=== PATIENT | male | born 1960 | race Caucasian/White ===

== ENCOUNTER 2018-05-05 13:17 | Emergency (ER) | payer MEDICARE ==
[2018-05-05 13:38] VITALS: BP 150/91
[2018-05-05] MEDS ORDERED: traMADol 50 MG Tab PO ONE (14:15)
--- NOTE | 2018-05-05 14:19 | EDM.PDOC ---
ED HPI GENERAL MEDICAL PROBLEM - General Chief Complaint: Headache Stated Complaint: PAIN IN HEAD Time Seen by Provider: 05/05/18 14:05 Source of Information: Reports: Patient, Old Records, RN History Limitations: Reports: No Limitations - History of Present Illness INITIAL COMMENTS - FREE TEXT/NARRATIVE: 7 yo male patient of Dr[address] Virgen presents for intermittent pain in his head that is worse the past few days. He has AIDS and is worried about a fungal infection. No fever. No trouble walking or talking. His neck is a little stiff. Took ibuprofen yesterday without relief. Has not tried to get into Dr. Virgen's office. No nausea or vomiting. Onset: Other (comes and goes for months, getting worse.) Duration: Week(s):, Waxing/Waning Location: Reports: Head Quality: Reports: Stabbing Severity: Mild (now almost gone) Improves with: Reports: None Worsens with: Reports: Other (unknown) Context: Reports: Other (see HPI) Associated Symptoms: Reports: Headaches. Denies: Fever/Chills, Nausea/Vomiting Treatments CHILD CARE [employer] LEADER: Reports: Other (see below) (none today) Headache Pain Score (Numeric/FACES): 10 - Related Data Allergies Allergy/AdvReac Type Severity Reaction Status Date / Time No Known Allergies Allergy Verified 05/05/18 13:41 Home Meds: Home Meds Dolutegravir Sodium [Tivicay] 50 mg PO DAILY 05/05/18 [History] Emtricitabine/Tenofovir [Truvada 200 MG-300 MG] 1 tab PO DAILY 05/05/18 [History ] OLANZapine [Olanzapine] 10 mg PO DAILY 05/05/18 [History] Past Medical History HEENT History: Reports: Impaired Vision Musculoskeletal History: Reports: Back Pain, Chronic Psychiatric History: Reports: Bipolar Endocrine/Metabolic History: Reports: Diabetes, Type II, Obesity/BMI 30+ Hematologic History: Reports: Blood Transfusion(s) Immunologic History: Reports: HIV Oncologic (Cancer) History: Reports: Lymphoma - Infectious Disease History Infectious Disease History: Reports: Hepatitis B - Past Surgical History Head Surgeries/Procedures: Reports: None HEENT Surgical History: Reports: None Endocrine Surgical History: Reports: None Musculoskeletal Surgical History: Reports: None Oncologic Surgical History: Reports: None Other Oncologic Surgeries/Procedures: [id number] Dermatological Surgical History: Reports: None Social & Family History - Tobacco Use Smoking Status *Q: Never Smoker Second Hand Smoke Exposure: No - Caffeine Use Caffeine Use: Reports: Coffee - Recreational Drug Use Recreational Drug Use: No ED ROS GENERAL - Review of Systems Review Of Systems: See Below Constitutional: Reports: No Symptoms HEENT: Reports: No Symptoms Respiratory: Reports: No Symptoms Cardiovascular: Reports: No Symptoms Endocrine: Reports: No Symptoms GI/Abdominal: Reports: No Symptoms : Reports: No Symptoms Musculoskeletal: Reports: Neck Pain ( mild stiffness) Skin: Reports: No Symptoms Neurological: Reports: Headache. Denies: Confusion, Dizziness, Numbness, Tingling, Trouble Speaking, Difficulty Walking, Change in Speech Psychiatric: Reports: No Symptoms - Physical Exam Exam: See Below Exam Limited By: No Limitations General Appearance: Alert, WD/WN, No Apparent Distress Eye Exam: Bilateral Eye: EOMI, Normal Inspection, PERRL Ears: Normal External Exam, Normal Canal, Hearing Grossly Normal, Normal TMs Nose: Normal Inspection, Normal Mucosa, No Blood Throat/Mouth: Normal Inspection, Normal Lips, Normal Oropharynx, Normal Voice, No Airway Compromise Head Exam: Atraumatic, Normocephalic Neck: Normal Inspection, Full Range of Motion Respiratory/Chest: No Respiratory Distress, Lungs Clear, Normal Breath Sounds, No Accessory Muscle Use Cardiovascular: Regular Rate, Rhythm, No Edema Neuro Exam (Abbreviated): Alert, Oriented, CN II-XII Intact, Normal Cognition, No Motor/Sensory Deficits Back Exam: Normal Inspection. No: CVA Tenderness (R), CVA Tenderness (L) Extremities: Normal Inspection, Normal Range of Motion, Non-Tender, No Pedal Edema Psychiatric: Normal Affect, Anxious (seems mildly anxious) Skin Exam: Warm, Dry, Intact, Normal Color, No Rash Course - Vital Signs Text/Narrative:: Reports minimal change with the Tramadol 100 mg po Last Recorded V/S: Last Vital Signs Temp 35.9 C 05/05/18 13:53 Pulse 97 05/05/18 13:53 Resp 13 05/05/18 13:53 BP 150/91 H 05/05/18 13:53 Pulse Ox 99 05/05/18 13:53 - Orders/Labs/Meds Meds: Medications Discontinued Medications Generic Name Dose Route Start Last Admin Trade Name Freq PRN Reason Stop Dose Admin Tramadol HCl 100 mg 05/05/18 14:15 05/05/18 14:20 Ultram PO 05/05/18 14:16 100 mg ONETIME ONE Administration - Radiology Interpretation Free Text/Narrative:: CT Head-neg CT Results Date: 05/05/18 Departure - Departure Time of Disposition: 15:35 Disposition: Home, Self-Care 01 Condition: Good Clinical Impression: Head pain cephalgia Qualifiers: Headache type: unspecified Headache chronicity pattern: episodic headache Intractability: not intractable Qualified Code(s): R51 - Headache - Discharge Information *PRESCRIPTION DRUG MONITORING PROGRAM REVIEWED*: No *COPY OF PRESCRIPTION DRUG MONITORING REPORT IN PATIENT JEIMY: No Instructions: Pain Without a Known Cause Referrals: Bartolo Virgen MD [Primary Care Provider] - Forms: ED Department Discharge Additional Instructions: Take naproxen sodium 2 every 8 hrs with food as needed for BADILLO. If not improving try adding Percocet for added relief. F/U with your doctor shannan, call for an appt. Return here for fever over 100F
--- NOTE | 2018-05-05 15:20 | CRLCT ---
INDICATION: Severe headache. COMPARISON: None. TECHNIQUE: CT head without intravenous contrast. FINDINGS: No evidence of intracranial hemorrhage. No mass lesions. No evidence of shift of the midline structures. The calvarium is unremarkable. The ventricular system, the subarachnoid cisterns and the cerebral sulci are unremarkable. IMPRESSION: Negative unenhanced head CT. Please note that all CT scans at this facility use dose modulation, iterative reconstruction, and/or weight-based dosing when appropriate to reduce radiation dose to as low as reasonably achievable. Dictated by Eliana Herman MD @ May 05 2018 3:14PM Signed by Dr. Eliana Herman @ May 05 2018 3:17PM
== END 2018-05-05 15:40 | disposition home or self-care (01) ==
LOC: JP.ED 13:17
DX: R51 Headache (principal); E11.9 Type 2 diabetes mellitus without complications; E66.9 Obesity, unspecified; Z79.899 Other long term (current) drug therapy
CPT/HCPCS: 70450; 99284; A9270; 99283